=== PATIENT | female | born 1970 | race Caucasian/White ===

== ENCOUNTER 2018-04-21 10:38 | Outpatient (CLI) | payer MEDICAID ==
[2018-04-21 10:36] VITALS: BP 117/65
[~2018-04-21 10:38] MED LIST: BUPR150T8 PO; CITA-278 PO; GABA-532 PO; IPRA4AER IH; MELO-100 PO; MONT10TA24 PO; PANT-47 PO; SIMV20TA5 PO
== END 2018-04-21 11:20 | disposition home or self-care (01) ==
LOC: ORTHO 10:38
PROVIDERS: ATTEND Nurse Practitioner Family
DX: S99.922D Unspecified injury of left foot, subsequent encounter (principal); F17.200 Nicotine dependence, unspecified, uncomplicated; E78.00 Pure hypercholesterolemia, unspecified; F41.9 Anxiety disorder, unspecified; J45.909 Unspecified asthma, uncomplicated; Z88.0 Allergy status to penicillin; Z88.2 Allergy status to sulfonamides; Z88.5 Allergy status to narcotic agent; Z88.8 Allergy status to other drugs, medicaments and biological substances; X58.XXXD Exposure to other specified factors, subsequent encounter
CPT/HCPCS: 73630; 99213

== ENCOUNTER 2018-05-13 11:41 | Outpatient (CLI) | payer MEDICAID ==
[2018-05-13 11:43] VITALS: BP 121/64
== END 2018-05-13 12:23 | disposition home or self-care (01) ==
LOC: ORTHO 11:41
PROVIDERS: ATTEND Nurse Practitioner Family
DX: S99.922D Unspecified injury of left foot, subsequent encounter (principal); E78.00 Pure hypercholesterolemia, unspecified; J45.909 Unspecified asthma, uncomplicated; F41.9 Anxiety disorder, unspecified; F17.210 Nicotine dependence, cigarettes, uncomplicated; Z88.0 Allergy status to penicillin; Z88.2 Allergy status to sulfonamides; X58.XXXD Exposure to other specified factors, subsequent encounter
CPT/HCPCS: 99213; A6449

== ENCOUNTER 2018-06-21 14:56 | Outpatient (CLI) | payer MEDICAID ==
[2018-06-21 14:54] VITALS: BP 120/70
== END 2018-06-21 15:24 | disposition home or self-care (01) ==
LOC: ORTHO 14:56
PROVIDERS: ATTEND Nurse Practitioner Family
DX: S99.922D Unspecified injury of left foot, subsequent encounter (principal); E78.00 Pure hypercholesterolemia, unspecified; J45.909 Unspecified asthma, uncomplicated; F41.9 Anxiety disorder, unspecified; F17.210 Nicotine dependence, cigarettes, uncomplicated; Z88.0 Allergy status to penicillin; Z88.2 Allergy status to sulfonamides; Z88.6 Allergy status to analgesic agent; Z88.5 Allergy status to narcotic agent; Z90.710 Acquired absence of both cervix and uterus; Z88.8 Allergy status to other drugs, medicaments and biological substances; X58.XXXD Exposure to other specified factors, subsequent encounter
CPT/HCPCS: 99213

== ENCOUNTER 2021-11-18 16:31 | Emergency (ER) | payer MEDICAID ==
[~2021-11-18] VITALS: Ht 170.2 cm; Wt 83.6 kg
[~2021-11-18 16:31] MED LIST changes: -CITA-278 PO; +CITA20TA28 PO; +MONT-40 PO; -MONT10TA24 PO; +SIMV-42 PO; -SIMV20TA5 PO
[2021-11-18 16:52] VITALS: BP 100/62
== END 2021-11-19 01:29 | disposition home or self-care (01) ==
LOC: ER 16:32
DX: M79.674 Pain in right toe(s) (principal); Z72.89 Other problems related to lifestyle; Z88.0 Allergy status to penicillin; Z88.6 Allergy status to analgesic agent; Z88.2 Allergy status to sulfonamides; Z88.5 Allergy status to narcotic agent; Z79.899 Other long term (current) drug therapy
CPT/HCPCS: 73630; 99283